=== PATIENT | male | born 1930 | race Caucasian/White ===

== ENCOUNTER 2016-11-22 09:06 | Outpatient (CLI) | payer MEDICARE | END 2016-11-22 09:07 | disposition home or self-care (01) | DX: I10 Essential (primary) hypertension (principal) ==

== ENCOUNTER 2017-02-07 09:06 | Outpatient (CLI) | payer MEDICARE ==
[2017-02-07] MEDS ORDERED: BARIUM SULFATE 135 ML BOTTLE PO ONE (10:02)
[2017-02-07] MEDS ORDERED: BARIUM SULFATE 355 ML BOTTLE PO ONE (11:00)
[2017-02-07] MEDS ORDERED: BARIUM SULFATE 355 ML BOTTLE PO SCH (11:00)
== END 2017-02-07 09:07 | disposition home or self-care (01) ==
DX: K21.9 Gastro-esophageal reflux disease without esophagitis (principal); K44.9 Diaphragmatic hernia without obstruction or gangrene; K22.8 Other specified diseases of esophagus; R13.10 Dysphagia, unspecified
CPT/HCPCS: 74220; A9270

== ENCOUNTER 2017-04-13 09:10 | Outpatient (CLI) | payer MEDICARE ==
--- NOTE | 2017-04-13 16:20 | XRAY Report ---
EXAM: CHEST RADIOGRAPHY EXAM DATE: 04/13/2017 09:22 AM. CLINICAL HISTORY: Cough. COMPARISON: None. TECHNIQUE: 2 views. FINDINGS: Lungs/Pleura: No focal opacities evident. No pleural effusion. No pneumothorax. Normal volumes. Mediastinum: Heart and mediastinal contours are unremarkable. Other: Surgical clips overlie the right upper quadrant. 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 IMPRESSION: No acute disease or interval change. [facility] Referring Provider Line: [phone] SITE ID: [id number]
== END 2017-04-13 23:59 | disposition home or self-care (01) ==
LOC: DI 09:10
PROVIDERS: ATTEND Internal Medicine
DX: R05 Cough (principal)
CPT/HCPCS: 71020

== ENCOUNTER 2018-07-11 09:27 | Outpatient (CLI) | payer MEDICARE ==
--- NOTE | 2018-07-11 14:16 | XRAY Report ---
Reason: SPONDYLOSIS W/O MYELOPATHY OR RADICULOPATHY, LUMBA Procedure Date: 07/11/2018 Accession Number: [id number] / [id number] Procedure: XR - Lumbar Spine 2 View CPT Code: FULL RESULT: EXAM: LUMBOSACRAL SPINE RADIOGRAPHY EXAM DATE: 07/11/2018 10:57 AM. CLINICAL HISTORY: Chronic lumbar spine pain. Spondylolysis. COMPARISONS: 06/18/2015. 12/03/2013. TECHNIQUE: 2 views. FINDINGS: Alignment: Slight dextroscoliosis of the lower lumbar spine. Grade 1 anterolisthesis of L3 on L4 new in the interval. Bones: 5 lumbar type vertebral bodies. No acute fracture or bony lesion. Progression of multifocal degenerative osteophyte formation largely at L3, L4 and L5 with significant progression along the left lateral aspect of L3-L4. Disks: Significant progression of endplate sclerosis and disk space narrowing at L3-L4, L4-L5 and L5-S1. Facets: Mild to moderate lumbar facet arthropathy. Sacroiliac Joints: Unremarkable. Soft Tissues: No bowel obstruction. Vascular calcifications. Status post cholecystectomy. IMPRESSION: 1. 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 2. New grade 1 anterolisthesis of L3 on L4 likely due to facet arthropathy. [facility]
== END 2018-07-11 09:28 | disposition home or self-care (01) ==
LOC: DI 09:27
PROVIDERS: ATTEND Internal Medicine
DX: M47.816 Spondylosis without myelopathy or radiculopathy, lumbar region (principal); M51.36 Other intervertebral disc degeneration, lumbar region
CPT/HCPCS: 72100